=== PATIENT | female | born 1950 | race Caucasian/White ===

== ENCOUNTER 2018-04-13 06:35 | Day surgery (SDC) | payer OTHER ==
[~2018-04-13 06:35] MED LIST: ASPIR 8181 MG PO; ATORVASTATIN CA80 MG PO; CELEBREX50 MG PO; GABAPENTIN300 MG PO; METFORMIN HCL500 MG PO; PANADOL EXTRA500 MG PO; SINGULAIR10 MG PO; ZIAC 10/6.25 MG1 TAB PO
== END 2018-04-13 10:15 | disposition home or self-care (01) ==
LOC: CIR.AMB 06:35
DX: G56.02 Carpal tunnel syndrome, left upper limb (principal); M65.332 Trigger finger, left middle finger

== ENCOUNTER 2020-04-18 08:38 | Outpatient (CLI) | payer OTHER ==
[2020-04-18] MEDS ORDERED: CIMBALTA PO (10:01)
[2020-04-18] MEDS ORDERED: ZETIA10 MG PO (10:02)
[2020-04-18] MEDS ORDERED: MONTELUKA PO (10:03)
[2020-04-18] MEDS ORDERED: ZANAFLEX2 M1 PO (10:03)
== END 2020-04-18 09:48 | disposition home or self-care (01) ==
LOC: LAB 08:38
PROVIDERS: ATTEND Surgery Surgery of the Hand
DX: D68.8 Other specified coagulation defects (principal); Z03.818 Encounter for observation for suspected exposure to other biological agents ruled out

== ENCOUNTER 2020-04-25 05:05 | Day surgery (SDC) | payer OTHER ==
[~2020-04-25 05:05] MED LIST changes: +CIMBALTA PO; +MONTELUKA PO; +ZANAFLEX2 M1 PO; +ZETIA10 MG PO
== END 2020-04-25 10:35 | disposition home or self-care (01) ==
LOC: CIR.AMB 05:05
PROVIDERS: ATTEND Surgery Surgery of the Hand
DX: M65.842 Other synovitis and tenosynovitis, left hand (principal); M65.342 Trigger finger, left ring finger; Z20.822 Contact with and (suspected) exposure to COVID-19